=== PATIENT | male | born 1995 | race Caucasian/White ===

== ENCOUNTER 2021-01-08 07:44 | Emergency (ER) | payer BC ==
[~2021-01-08] VITALS: Ht 180.3 cm; Wt 95.3 kg
[~2021-01-08 07:44] MED LIST: FLOMAX0.4 MG PO; HYDROCODON-ACE1 EAC7 PO; NORCO 5-325 TA1 EACH PO; PERCOCET PO
[2021-01-08] MEDS ORDERED: MECLIZINE HCL25 M1 PO (09:19)
[2021-01-08 09:48] VITALS: BP 134/72
== END 2021-01-08 09:48 | disposition home or self-care (01) ==
LOC: M.ERS 07:44
DX: S01.81XA Laceration without foreign body of other part of head, initial encounter (principal); H83.09 Labyrinthitis, unspecified ear; Z90.49 Acquired absence of other specified parts of digestive tract; X58.XXXA Exposure to other specified factors, initial encounter; Y93.89 Activity, other specified; Y92.89 Other specified places as the place of occurrence of the external cause; Y99.8 Other external cause status